=== PATIENT | female | born 1945 | race Caucasian/White ===

== ENCOUNTER 2017-08-07 14:00 | Outpatient (RCR) | payer MEDICARE, OTHER, SELFPAY | END 2017-08-14 09:15 | LOC: CAR 14:00 | PROVIDERS: Visit Provider Internal Medicine | DX: Z95.5 Presence of coronary angioplasty implant and graft (principal) | CPT/HCPCS: 93798 ==

== ENCOUNTER → 2018-03-17 07:58 | Outpatient (CLI) | payer MEDICARE, OTHER, SELFPAY ==
--- NOTE | 2018-03-17 | DI.CT.S_ITS ---
PROCEDURE: CT ABDOMEN PELVIS WO/W CON INDICATIONS: PELVIC PAIN TECHNIQUE: Optional 5 mm thick noncontrast images acquired from the diaphragm to the symphysis pubis. After the administration of intravenous contrast, 5 mm thick images acquired from the diaphragm to the symphysis pubis after a 10-minute delay. 2 mm thick coronal and sagittal reformats were then performed of the kidneys and ureters. For radiation dose reduction, the following was used: automated exposure control, adjustment of mA and/or kV according to patient size. COMPARISON: [facility], CT, KIDNEY/ URETER/BLADDER, 02/18/2014, 11:25. FINDINGS: Image quality: Excellent. Lung bases: Lung bases are clear. Heart size is normal. Urinary system: Both kidneys are normal in size, without hydronephrosis . Punctate nonobstructive left renal calculus is seen image 28 series 2. Simple appearing exophytic right renal cyst arising off the upper pole. No perinephric fat stranding. There is normal bilateral renal enhancement. Renal calyces appear normal in morphology when filled with contrast. Opacified portions of both ureters demonstrate normal caliber. Bladder grossly unremarkable. No calcified bladder stones. Other solid organs: There are numerous small hypodense liver lesions, probably small cysts or hemangiomas and no definite interval change. Soft tissue attenuation adjacent to the posterior margin of the liver on image 60 series 3 is of indeterminate etiology however stable in appearance Gallbladder negative. Biliary system is non dilated. Pancreas enhances normally. Spleen is normal in size and enhancement. No adrenal nodules. Peritoneum and bowel: Bowel loops demonstrate normal wall thickness and caliber. There is a bladder diverticulum. No free fluid or air. Normal appendix Nodes and vessels: No retroperitoneal or mesenteric adenopathy by size criteria. Aorta and inferior vena cava are normal in size. Abdominal wall: No ventral hernias. Pelvis: No pathologic free pelvic fluid. No inguinal hernias or adenopathy. Bones: No suspicious bony lesions. No vertebral body compression fractures. IMPRESSION: Nonobstructing punctate left renal calculus. Right renal cyst. Normal appendix. No acute abnormality seen. Presumed hepatic cysts or hemangiomas as before with grossly stable appearance Dictated by: Scottie Shah M.D. on 03/17/2018 at 17:00 Approved by: Scottie Shah M.D. on 03/17/2018 at 17:10
== END ==
PROVIDERS: Visit Provider Nurse Practitioner Family
DX: R10.2 Pelvic and perineal pain (principal); N20.0 Calculus of kidney; N28.1 Cyst of kidney, acquired; K76.9 Liver disease, unspecified; N32.3 Diverticulum of bladder
CPT/HCPCS: 74178; Q9967

== ENCOUNTER → 2018-08-06 16:24 | Outpatient (CLI) | payer MEDICARE, OTHER, SELFPAY ==
--- NOTE | 2018-08-06 16:26 | DI.MG.S_ITS ---
BILATERAL DIGITAL SCREENING MAMMOGRAM 3D/2D WITH CAD: 08/06/2018 CLINICAL: Routine screening. Family history of breast cancer. Comparison is made to exams dated: 07/31/2017 mammogram, 07/25/2016 mammogram, and 07/20/2015 mammogram - [facility]. The tissue of both breasts is heterogeneously dense. This may lower the sensitivity of mammography. Current study was also evaluated with a Computer Aided Detection (CAD) system. There are benign vascular calcifications in both breasts. There also is a benign biopsy clip in the left breast. There are mole markers on both breasts. No significant masses, calcifications, or other findings are seen in either breast. There has been no significant interval change. IMPRESSION: There is no mammographic evidence of malignancy. A 1 year screening mammogram is recommended. This exam was interpreted at Station ID: [id number]. NOTE: For mammograms, a report in lay terms will be sent to the patient. Approximately 15% of breast malignancies will not be visualized mammographically. In the management of a palpable breast mass, a negative mammogram must not discourage biopsy of a clinically suspicious lesion. Electronically Signed By: Ammon rodriguez/valerio:08/06/2018 19:39:15 letter sent: Normal Exam ACR BI-RADS Category 2: Benign Finding(s) [id number]
== END ==
PROVIDERS: Visit Provider Nurse Practitioner Family
DX: Z12.31 Encounter for screening mammogram for malignant neoplasm of breast (principal); Z80.3 Family history of malignant neoplasm of breast
CPT/HCPCS: 77063; 77067

== ENCOUNTER → 2018-11-19 09:05 | Outpatient (CLI) | payer MEDICARE, OTHER, SELFPAY ==
--- NOTE | 2018-11-19 | DI.CT.S_ITS ---
PROCEDURE: CT ABDOMEN PELVIS WO/W CON INDICATIONS: 6 month follow up TECHNIQUE: Optional 5 mm thick noncontrast images acquired from the diaphragm to the symphysis pubis. After the administration of intravenous contrast, 5 mm thick images acquired from the diaphragm to the symphysis pubis after a 10-minute delay. 2 mm thick coronal and sagittal reformats were then performed of the kidneys and ureters. For radiation dose reduction, the following was used: automated exposure control, adjustment of mA and/or kV according to patient size. COMPARISON: [facility], CT, KIDNEY/ URETER/BLADDER, 02/18/2014, 11:25. [facility], CT, CT ABDOMEN PELVIS WO/W CON, 03/17/2018, 8:09. FINDINGS: Image quality: Excellent. Lung bases: There is mild scarring in the lung bases. Heart size is normal. Urinary system: There is a punctate non-obstructing left renal stone demonstrated. No hydronephrosis or perinephric fat stranding. An exophytic right renal cyst is redemonstrated. There is symmetric bilateral renal enhancement. Renal calyces appear normal in morphology when filled with contrast without suspicious filling defects. Opacified portions of both ureters demonstrate normal caliber. Bladder wall thickness is normal. No calcified bladder stones. Other solid organs: Multiple hepatic cysts are redemonstrated as well as smaller low-density foci which are too small to characterize but likely represent cysts. A small soft tissue nodule posterior to the right hepatic lobe measuring up to 1.6 x 0.9 cm is stable in appearance compared to the prior studies. Gallbladder appears within normal limits without calcified gallstones. Biliary system is non dilated. Pancreas enhances normally. Spleen is normal in size and enhancement. No adrenal nodules. Peritoneum and bowel: Bowel loops demonstrate normal wall thickness and caliber. There is a duodenal diverticulum along the pancreatic head. There is moderate colonic stool suggestive of constipation. No free fluid or air. Nodes and vessels: No retroperitoneal or mesenteric adenopathy by size criteria. Aorta and inferior vena cava are normal in size. Abdominal wall: No ventral hernias. Pelvis: No pathologic free pelvic fluid. No inguinal hernias or adenopathy. Bones: There is sclerosis along the pubic symphysis redemonstrated bilaterally. No suspicious bony lesions. No vertebral body compression fractures. IMPRESSION: 1. Punctate left renal stone redemonstrated without evidence of hydronephrosis. 2. Multiple hepatic cysts and presumed small cysts redemonstrated. 3. Soft tissue nodule posterior to the right hepatic lobe is of indeterminate etiology but appears stable compared to the prior studies. Dictated by: Janusz Art M.D. on 11/19/2018 at 17:38 Approved by: Janusz Art M.D. on 11/19/2018 at 17:47
== END ==
PROVIDERS: PCP Nurse Practitioner Family; Visit Provider Nurse Practitioner Family
DX: K76.89 Other specified diseases of liver (principal); N20.0 Calculus of kidney
CPT/HCPCS: 74178; Q9967